=== PATIENT | female | born 2000 | race Caucasian/White ===

== ENCOUNTER 2023-12-18 12:48 | Emergency (ER) | payer MEDICAID ==
[~2023-12-18] VITALS: Ht 147.3 cm; Wt 40.0 kg
[2023-12-18 12:50] VITALS: BP 107/67; PULSE 65; RESP 20; TEMP 98.1; O2SAT 100
[2023-12-18] MEDS ORDERED: TETANUS, DIPHTHERIA, PERTUSSIS VAC/PF 0.5ML (>10YR OLD) IM ONE (13:15)
[2023-12-18] MEDS: BACITRACIN ZINC OINT UDPKT TOP ONE (13:15)
[2023-12-18] MEDS ORDERED: LIDOCAINE HCL/PF 1% 10 MG/ML 5ML VIAL INFIL ONE (13:15)
== END 2023-12-18 14:51 | disposition home or self-care (01) ==
LOC: ER 13:24
DX: S61.412A Laceration without foreign body of left hand, initial encounter (principal); W26.8XXA Contact with other sharp object(s), not elsewhere classified, initial encounter; Y93.89 Activity, other specified; Y92.89 Other specified places as the place of occurrence of the external cause; Y99.8 Other external cause status
CPT/HCPCS: 90471; 90715; 99282; 99283

== ENCOUNTER 2023-12-25 12:55 | Emergency (ER) | payer MEDICAID ==
[~2023-12-25] VITALS: Ht 139.7 cm; Wt 53.0 kg
[2023-12-25 13:01] VITALS: BP 109/64; PULSE 72; RESP 18; TEMP 98; O2SAT 100
== END 2023-12-25 13:12 | disposition home or self-care (01) ==
LOC: ER 13:03
DX: S61.012D Laceration without foreign body of left thumb without damage to nail, subsequent encounter (principal); X58.XXXD Exposure to other specified factors, subsequent encounter
CPT/HCPCS: 99281